=== PATIENT | female | born 1990 ===

== ENCOUNTER 2018-05-25 11:24 | Inpatient (IN) | payer OTHER ==
[~2018-05-25 11:24] MED LIST: Bupivacaine/Epinephrine 0.25% 30 ML VIAL ONE
[2018-05-25] MEDS ORDERED: Misoprostol 200 MCG TAB PR PRN (11:52)
[2018-05-25] MEDS ORDERED: NS / Oxytocin 40 units/1000ml 1,000 ML IV PRN (11:52)
[2018-05-25] MEDS ORDERED: Promethazine HCl 25 MG/ML VIAL IM PRN ×2 (11:52→16:40)
[2018-05-25] MEDS ORDERED: HYDROcodone/Acetaminophen 5/325 mg Tablet PO PRN (11:52)
[2018-05-25] MEDS ORDERED: Methylergonovine 0.2 MG/ML VIAL IM PRN (11:52)
[2018-05-25] MEDS ORDERED: Ibuprofen 800 MG TAB PO PRN (11:52)
[2018-05-25] MEDS ORDERED: Acetaminophen 500 MG TAB PO PRN (11:52)
[2018-05-25] MEDS ORDERED: Carboprost 250 MCG/ML AMP IM PRN (11:52)
[2018-05-25] MEDS ORDERED: Butorphanol Tartrate 1 MG/ML VIAL SLOW IVP PRN (11:52)
[2018-05-25] MEDS ORDERED: Diphenoxylate HCl/Atropine Tablet PO PRN (11:52)
[2018-05-25] MEDS ORDERED: Lidocaine 1% (PF) 30 ML VIAL SC PRN (11:52)
[2018-05-25] MEDS ORDERED: Ondansetron HCl/PF 4 MG/2 ML Vial IVP PRN ×2 (11:52→16:40)
[2018-05-25] MEDS: Lactated Ringer's 1,000 ML IV SCH ×3 (12:10→19:09)
[2018-05-25] MEDS ORDERED: NS w/ Oxytocin 10 units 500 ML IV SCH (12:30)
--- NOTE | 2018-05-25 12:32 | PDOC.LDHP ---
Labor and Delivery H&P Chief complaint: loss of fluid HPI: 28 yo G1 @ 37w1d by LMP c/w 10 week CRL who presented to clinic with c/o SROM @ 9 am yesterday and ctx. Antepartum course benign. Current gestational age (weeks): 37 Dating criteria: last menstrual period Grav: 1 Para: 0 Current complications: none Abnormal US findings: No Past Medical History: Denies Current medications: pre-anabel vitamins Previous surgical history: none Social history: none - Physical Exam Vital signs reviewed and normal: yes General: NAD Heart: RRR Lungs: CTAB Abdomen: gravid Extremeties: no edema FHT: category 1 (130s, mod jackson, +accels, no decels) [place] contractions every: q8 min - Vaginal Exam cm dilated: 2 (cephalic) Effacement: 75% Station: 0 - OB Labs Blood type: A RH: positive Antibody Screen: negative HIV: negative RPR: negative HEPSAg: negative 1 hour GCT: negative GBS: positive Urine drug screen: not done Rubella: non-immune Additional Labs: NT and SSQ negative - Assessment 37w1d IUP SROM Latent labor GBS + Rubella non-immune - Plan Plan: admit to L&D, labor augmentation if indicated (start pitocin for augmentation), GBS antibiotic prophylaxis, informed consent obtained, anesthesia consult for pain management -: EBONI PP
[2018-05-25 12:38] LABS: Hemoglobin 13.2 g/dL (12.0-16.0); Mean Corpuscular HGB CONC 35.5 g/dL (32.0-36.0); Mean Corpuscular Hemoglobin 31.7 pg (27.0-31.0); Mean Corpuscular Volume 89.2 fL (78.0-98.0); Platelet Count 168 thou/uL (130-400); RBC Distribution Width 11.8 % (11.5-14.5); Red Blood Cell (RBC) Count 4.16 mill/uL (4.20-5.40); White Blood Cell (WBC) Count 13.9 thou/uL (4.8-10.8)
[2018-05-25] MEDS ORDERED: Penicillin G Potassium 5 MILL.UNITS VIAL ONE (12:39)
[2018-05-25 13:20] VITALS: BMI 24.6
[2018-05-25 13:20] LABS: HBSAg Index 0.14 S/CO (0-0.99); HIV (1/2) Antibody/Antigen Non-Reactive (NonReactive); HIV 1/2 INDEX 0.09 S/CO (<1.00); Hep B Surf Ag Non-Reactive S/CO (NonReactive)
[2018-05-25] MEDS ORDERED: Penicillin G Potassium 5 MILL.UNITS in Sodium Chloride 0.9% 100 ML IVPB SCH (13:30)
[2018-05-25] MEDS ORDERED: Butorphanol Tartrate 1 MG/ML VIAL ONE (14:29)
[2018-05-25] MEDS ORDERED: Bupivacaine 0.75% 13.4 ML, fentaNYL Citrate/PF 400 MCG in Sodium Chloride 0.9% 78.6 ML EPIDURAL SCH (14:30)
[2018-05-25] MEDS ORDERED: DISCONTINUE ALL PREVIOUS NARCOTICS FS SCH (14:30)
[2018-05-25] MEDS: Penicillin G 2.5 MILL.units 2.5 MILL.UNITS in Premix Bag 1 BAG IVPB SCH (16:38)
[2018-05-25] MEDS ORDERED: Naloxone HCl 0.4 mg/ml Vial IVP PRN ×2 (16:40)
[2018-05-25] MEDS ORDERED: ePHEDrine/0.9% NaCl/PF SYRINGE 50 mg/10 ml SLOW IVP PRN (16:40)
[2018-05-25] MEDS ORDERED: Eucerin (Mineral Oil/Petrolatum,White) 30 gm Jar TOP PRN (16:40)
[2018-05-25] MEDS ORDERED: Acetaminophen 325 MG TAB PO PRN (16:40)
[2018-05-25] MEDS ORDERED: Lactated Ringer's 500 ML IV PRN (16:40)
[2018-05-25] MEDS ORDERED: diphenhydrAMINE 50 MG/ML VIAL IVP PRN (16:40)
[2018-05-25] MEDS ORDERED: fentaNYL Citrate/PF 400 MCG, Bupivacaine 0.5% 20 ML in Sodium Chloride 0.9% 72 ML EPIDURAL SCH (16:45)
[2018-05-25] MEDS ORDERED: Communication Order-Pharmacy FS SCH (16:45)
--- NOTE | 2018-05-25 17:02 | PDOC.LDPN ---
Labor & Delivery Progress Note - Subjective Subjective: vaginal pressure - Objective Vital signs reviewed and normal: yes General: NAD, resting Uterine fundus: non tender SVE: cephalic Dilation: 4 Effacement: 90% Station: 0 FHT: category 1 (130s, mod jackson, +accels, no decels ) [place] contractions every: q2-3 min when assessing correctly - Assessment (1) 37 weeks gestation of Code(s): Z3A.37 - 37 WEEKS GESTATION OF Current Visit: Yes Status : Acute (2) Group B streptococcal carriage complicating Code(s): O99.820 - STREPTOCOCCUS B CARRIER STATE COMPLICATING Current Visit: Yes Status: Acute (3) SROM (spontaneous rupture of membranes) Code(s): [id number] - Current Visit: Yes Status: Acute Plan: continue plan of care, pitocin for augmentation, other (PCN for GBS PPX )
[2018-05-25 18:03] LABS: Syphilis Antibody Nonreactive (Nonreactive); Syphilis Antibody Index 0.03 S/CO (<1.00 Non-Reactive)
--- NOTE | 2018-05-25 20:32 | PDOC.OPDEL ---
OB Operative/Delivery Note Delivery Dr/Surgeon: Kaitlin Manriquez DO Pre-Delivery Diagnosis: ruptured membrane Procedure/Post Delivery Dx: spontaneous vaginal delivery Weeks gestation: 37 Anesthesia: epidural - Findings A Sex: female - 1 min: 8 - 5 min: 9 - Additional Findings/Plan Placenta delivered: spontaneous Repaired Obstetrical Laceration: other (1st degree perineal and right labial/ hymenal) Estimated blood loss: 200 cc Compilations/Other Findings: Infant in GARY position Normal appearing placenta Post delivery plan: routine recovery
[2018-05-25] MEDS ORDERED: diphenhydrAMINE 25 MG CAP PO PRN (23:28)
[2018-05-25] MEDS ORDERED: NS / Oxytocin 40 units/1000ml 1,000 ML IV SCH (23:28)
[2018-05-25] MEDS ORDERED: traMADol HCl 50 MG TAB PO PRN (23:28)
[2018-05-25] MEDS ORDERED: Benzocaine/Menthol 20-0.5% 60 ML CAN TOP PRN (23:28)
[2018-05-25] MEDS ORDERED: Bisacodyl 10 MG SUPP PR PRN (23:28)
[2018-05-25] MEDS ORDERED: Milk Of Magnesia 30 ML UDCUP PO PRN (23:28)
[2018-05-25] MEDS ORDERED: Measles/Mumps/Rubella 10 MCG/0.5 ML VIAL SC ONE (23:28)
[2018-05-26] MEDS: Penicillin G 2.5 MILL.units 2.5 MILL.UNITS in Premix Bag 1 BAG IVPB SCH (00:36)
[2018-05-26] MEDS: Ibuprofen 800 MG TAB PO SCH ×3 (05:32→21:34)
--- NOTE | 2018-05-26 08:09 | PDOC.PP ---
Post Progress Note Post Day #: 1 Subjective: doing well, nursing, min lochia PO intake tolerated: yes Flatus: yes Ambulation: yes Vital Signs (12 hours) Temp Pulse Resp BP BP 05/26/18 04:20 97.8 F 83 16 106/55 L 05/26/18 00:50 98.0 F 71 16 108/54 L 05/25/18 23:50 97.9 F 65 16 106/61 Weight Weight 148 lb - Physical Examination General: NAD Respiratory: clear to auscultation bilaterally Extremities: negative homans (B) Skin: no rash Neurological: no gross focal deficits Psychiatric: A&Ox3, normal affect Result Diagrams: 05/25/18 12:17 Additional Labs: Post Labs Blood Type A POSITIVE 05/25/18 12:17 Hep Bs Antigen Non-Reactive S/CO (NonReactive) 05/25/18 12:17 (1) Vaginal delivery Code(s): O80 - ENCOUNTER FOR FULL-TERM UNCOMPLICATED DELIVERY Status: Acute (2) 37 weeks gestation of Code(s): Z3A.37 - 37 WEEKS GESTATION OF Status: Acute - Assessment/Plan PPD1, TSVD, uncomplicated. Cont PP care.
[2018-05-26] MEDS: Docusate Calcium (SURFAK) 240 MG CAP PO SCH ×2 (08:54→21:34)
[2018-05-26] MEDS: Prenatal Vitamin 1 TAB PO SCH (08:54)
[2018-05-27] MEDS: Ibuprofen 800 MG TAB PO SCH ×2 (06:17→13:49)
--- NOTE | 2018-05-27 08:09 | PDOC.PP ---
Post Progress Note Post Day #: 2 Subjective: No concerns. Breast feeding. Minimal lochia and pain. PO intake tolerated: yes Flatus: yes Ambulation: yes Weight Weight 148 lb - Physical Examination General: NAD Cardiovascular: no m/r/g, RRR Respiratory: non-labored breathing Abdominal: no distention, appropriately TTP Fundus firm & at: below umbilicus Extremities: negative homans (B) Neurological: no gross focal deficits Psychiatric: A&Ox3 Result Diagrams: 05/25/18 12:17 Additional Labs: Post Labs Blood Type A POSITIVE 05/25/18 12:17 Hep Bs Antigen Non-Reactive S/CO (NonReactive) 05/25/18 12:17 (1) 37 weeks gestation of Code(s): Z3A.37 - 37 WEEKS GESTATION OF Status: Resolved (2) Group B streptococcal carriage complicating Code(s): O99.820 - STREPTOCOCCUS B CARRIER STATE COMPLICATING Status : Resolved (3) SROM (spontaneous rupture of membranes) Code(s): FPO5680 - Status: Resolved (4) Vaginal delivery Code(s): O80 - ENCOUNTER FOR FULL-TERM UNCOMPLICATED DELIVERY Status: Acute - Assessment/Plan PPD 2 VSSAF D/C home today with
[2018-05-27 08:11] VITALS: BP 101/68; TEMP 97.9
[2018-05-27] MEDS: Prenatal Vitamin 1 TAB PO SCH (09:39)
[2018-05-27] MEDS: Docusate Calcium (SURFAK) 240 MG CAP PO SCH (09:39)
== END 2018-05-27 16:35 | disposition home or self-care (01) | DRG 775 ==
LOC: L&D 11:24 → 3SW 05-26 00:06
PROVIDERS: ADMIT Obstetrics & Gynecology; ATTEND Obstetrics & Gynecology
PROC: 10E0XZZ Delivery of Products of Conception, External Approach (ICD-10-PCS; principal; 2018-05-25)
PROC: 0HQ9XZZ Repair Perineum Skin, External Approach (ICD-10-PCS; 2018-05-25)
PROC: 0UQKXZZ Repair Hymen, External Approach (ICD-10-PCS; 2018-05-25)
PROC: 0UQMXZZ Repair Vulva, External Approach (ICD-10-PCS; 2018-05-25)
DX: O99.824 Streptococcus B carrier state complicating childbirth (principal); O70.9 Perineal laceration during delivery, unspecified; O70.0 First degree perineal laceration during delivery; Z3A.37 37 weeks gestation of pregnancy; Z37.0 Single live birth
CPT/HCPCS: 36415; 51701; 51702; 85027; 86780; 86850; 86900; 86901; 87340; 87389; 90707; J0595; J2540; J3010; J7050